=== PATIENT | male | born 1950 | race Caucasian/White ===

== ENCOUNTER → 2019-11-28 | Outpatient (CLI) | payer MEDICARE, OTHER ==
--- NOTE | 2019-11-28 14:40 | Diagnostic Imaging Report ---
EXAMINATION: MRI of the right shoulder without contrast dated 11/28/2019. TECHNIQUE: Multiplanar, multisequence non contrast-enhanced MRI of the right upper extremity was accomplished. INDICATION: Right shoulder pain from heavy lifting approximately one month ago. FINDINGS: There is a focal linear hyperintensity along the anterior supraspinatus tendon at the footprint. This is well seen on the coronal sequences, especially on image #15/20. This is most consistent with a partial deep bursal-sided tear. Definite articular extension is not seen; however, more posteriorly, there is articular-sided irregularity along the infraspinatus tendon, which could represent a partial articular-sided tear, and a serpiginous connection with the anterior supraspinatus tear is not excluded. No retraction seen. There is fluid in the adjacent subdeltoid-subacromial bursa. The subscapularis tendon contains internal abnormal signal intensity predominantly due to tendinosis. A small partial tear is not excluded. There is no retraction. Long head of the biceps tendon lies within the bicipital groove and appears intact. Biceps tendon anchor is intact. There is abnormal signal intensity throughout the superior labrum; however, this could be on a degenerative basis. Noncontrast imaging does limit evaluation of the labrum. There is abnormal signal intensity immediately anterior to the far anterior supraspinatus muscle. This may be reactive in nature secondary to the abnormality in the rotator cuff. The muscle itself appears intact. There is narrowing and spurring as well as fluid along the acromioclavicular joint. Degenerative findings in the inferior glenohumeral joint also noted with subchondral cysts throughout the glenoid. Muscle volume is fairly well preserved. Visualized axilla is unremarkable. IMPRESSION: 1. Deep partial bursal-sided tear of the supraspinatus tendon anteriorly with a possible serpiginous full-thickness tear extending posteriorly to involve the infraspinatus tendon; see above description. 2. Edema immediately anterior to the supraspinatus muscle; again see above description. 3. Tendinosis versus a small partial tear of the subscapularis tendon with other findings as discussed above. Dictated by: Dictated on workstation # [id number]
== END ==
LOC: RAD 13:02
PROVIDERS: ATTEND Family Medicine
DX: M75.111 Incomplete rotator cuff tear or rupture of right shoulder, not specified as traumatic (principal)
CPT/HCPCS: 73221

== ENCOUNTER 2020-02-12 07:22 | Outpatient (RCR) | payer MEDICARE, OTHER ==
[~2020-02-12] VITALS: Ht 182.9 cm; Wt 92.7 kg
[~2020-02-12 07:22] MED LIST: ASPI-586 PO; LISI10TA2 PO; MULT-1056 PO; ROSU20TA32 PO
== END 2020-02-12 15:28 | disposition home or self-care (01) ==
LOC: PREOP 07:22
PROVIDERS: ATTEND Surgery
DX: Z01.818 Encounter for other preprocedural examination (principal); Z11.59 Encounter for screening for other viral diseases
CPT/HCPCS: 87635

== ENCOUNTER → 2020-02-16 | Day surgery (SDC) | payer MEDICARE, OTHER ==
[~2020-02-16] VITALS: Ht 182.9 cm; Wt 92.7 kg
[~2020-02-16] MED LIST changes: +LACTATED RINGERS 1,000 ML IV ONE; +LACTATED RINGERS 1,000 ML IV STA; +MIDAZOLAM 2 MG/2 ML (VERSED) VIAL ONE; +PROPOFOL INJECTION 50 ML IV ONE
--- NOTE | 2020-02-16 09:49 | Progress Note-Pre Operative ---
Pre-Operative Progress Note H&P Reviewed The H&P was reviewed, patient examined and no changes noted. Time Seen by Provider: 09:47 Date H&P Reviewed: February 16, 2020 Time H&P Reviewed: 09:47 Pre-Operative Diagnosis: rectal bleed CHRIS MCRAE DO February 16, 2020 09:49
[2020-02-16 09:55] VITALS: BP 124/93
[2020-02-16 10:40] VITALS: BP 99/56
[2020-02-16 10:45] VITALS: BP 123/84
--- NOTE | 2020-02-16 10:46 | Progress Note-Post Operative ---
Post-Operative Progess Note Surgeon (s)/Tongue And Groove Machine Operator (s) Surgeon CHRIS MCRAE DO Tongue And Groove Machine Operator: none Pre-Operative Diagnosis rectal bleed Post-Operative Diagnosis Diverticula Int Hemorrhoids - grade II Procedure & Operative Findings Date of Procedure 02/16/20 Procedure Performed/Findings Colon Anesthesia Type IV sedation by HOUSEKEEPER CAREGIVER Estimated Blood Loss Estimated blood loss (mL): none Specimens/Packing Specimens Removed none CHRIS MCRAE DO February 16, 2020 10:46
--- NOTE | 2020-02-16 10:47 | Endoscopy Discharge Instruct ---
Endo Procedure/Findings Findings 1.: Diverticulosis 2.: Internal Hemorrhoids Discharge Instructions - Activity: You might feel a little sleepy until tomorrow. This is due to the medicine you received to relax you. Until tomorrow, you should: NOT drive a car, operate machinery or power tools. NOT drink any alcoholic beverages. NOT make any important decisions or sign importortant papers. Do not return to work until tomorrow, unless otherwise instructed. Resume previous activities tomorrow. Diet: Start by taking liquids. If you tolerate liquids, advance to solid food. make an appointment for one week 1.: Colonscopy in 10 years Notify Physician - If you experience excessive bleeding, unusual abdominal pain, fever, or chest pain, contact your doctor immediately. CHRIS MCRAE DO February 16, 2020 10:47
--- OUTSIDE RECORDS SUMMARY | 2020-02-16 10:48 | XMS REPORT | Continuity of Care Document ---
Author Organization Unknown Address Unknown Phone Unavailable Allergies Active Description Code Type Severity Reaction Onset Reported/Identified Relationship to Patient Clinical Status Yes No Known Drug Allergies [id number] Drug Allergy Unknown N/A 02/09/2020 Medications There is no data. Problems Date Dx Coded Attending Type Code Diagnosis Diagnosed By 09/06/1527 CHRIS MCRAE DO, Ot Z01.8 18 ENCOUNTER FOR OTHER PREPROCEDURAL EXAMIN 09/06/1527 CHRIS MCRAE DO Ot Z11.5 9 ENCOUNTER FOR SCREENING FOR OTHER VIRAL 12/03/2019 SELF QUINTIN ALEMAN Ot M75.11 1 INCOMPLETE ROTATR-CUFF TEAR/RUPTR OF R S 12/23/2019 SELF QUINTIN ALEMAN Ot M75.11 1 INCOMPLETE ROTATR-CUFF TEAR/RUPTR OF R S 02/09/2020 SELF QUINTIN ALEMAN Ot M75.11 1 INCOMPLETE ROTATR-CUFF TEAR/RUPTR OF R S Procedures There is no data. Results Test Result Range LIPID PANEL - 02/21/19 08:12 CHOLESTEROL, TOTAL 186 mg/dL <200 HDL CHOLESTEROL 39 mg/dL >40 TRIGLYCERIDES 200 mg/dL <150 LDL-CHOLESTEROL 115 mg/dL (calc) NRG CHOL/HDLC RATIO 4.8 (calc) <5.0 NON HDL CHOLESTEROL 147 mg/dL (calc) <13 0 CMP - 02/21/19 08:12 GLUCOSE 93 mg/dL 65-99 UREA NITROGEN (BUN) 19 mg/dL 7-25 CREATININE 1.15 mg/dL 0.70-1.25 eGFR NON-AFR. THAI 65 mL/min/1.73m2 > OR = 60 eGFR 75 mL/min/1.73m2 > OR = 60 BUN/CREATININE RATIO NOT APPLICABLE (calc) 6-22 SODIUM 139 mmol/L 135-146 POTASSIUM 4.4 mmol/L 3.5-5.3 CHLORIDE 106 mmol/L 98-110 CARBON DIOXIDE 26 mmol/L 20-32 CALCIUM 9.2 mg/dL 8.6-10.3 PROTEIN, TOTAL 6.6 g/dL 6.1-8.1 ALBUMIN 4.3 g/dL 3.6-5.1 GLOBULIN 2.3 g/dL (calc) 1.9-3.7 ALBUMIN/GLOBULIN RATIO 1.9 (calc) 1.0-2. 5 BILIRUBIN, TOTAL 0.5 mg/dL 0.2-1.2 ALKALINE PHOSPHATASE 79 U/L 40-115 AST 22 U/L 10-35 ALT 19 U/L 9-46 CBC w/MANUAL DIFF - 02/21/19 08:12 WHITE BLOOD CELL COUNT 5.0 Thousand/uL 3 .8-10.8 RED BLOOD CELL COUNT 4.77 Million/uL 4.2 0-5.80 HEMOGLOBIN 14.0 g/dL 13.2-17.1 HEMATOCRIT 42.8 % 38.5-50.0 MCV 89.7 fL 80.0-100.0 MCH 29.4 pg 27.0-33.0 MCHC 32.7 g/dL 32.0-36.0 RDW 14.0 % 11.0-15.0 PLATELET COUNT 231 Thousand/uL 140-400 MPV 11.6 fL 7.5-12.5 ABSOLUTE NEUTROPHILS 2650 cells/uL 1500- 7800 ABSOLUTE MONOCYTES 400 cells/uL 200-950 ABSOLUTE EOSINOPHILS 150 cells/uL 15-500 ABSOLUTE BASOPHILS 50 cells/uL 0-200 NEUTROPHILS 53 % NRG LYMPHOCYTES 35 % NRG MONOCYTES 8 % NRG EOSINOPHILS 3 % NRG BASOPHILS 1 % NRG ABSOLUTE LYMPHOCYTES 1750 cells/uL 850-3 900 PLATELET ESTIMATION ADEQUATE ADEQUATE CBC MORPHOLOGY NORMAL Coronavirus SARS-CoV-2 SO 2018 - 0 13:26 Coronavirus Ab [Units/volume] in Serum Negative Negative Encounters ACCT No. Visit Date/Time Discharge Status Pt. Type Provider Facility Loc./Unit Complaint [id number] 09/09/2019 14:30:00 09/09/2019 23:59: 59 CLS Outpatient MARK, QUINTIN Corbett [facility] [id number] 02/21/2019 08:15:00 Document Registration [id number] 02/12/2020 07:22:00 020 15:28:00 DIS Outpatient CHRIS MCRAE DO [facility] PREOP COLONOSCOPY [id number] 11/28/2019 13:02:00 020 23:59:59 CLS Outpatient SELF QUINTIN ALEMAN [facility] RAD ACUTE PAIN OF RT SHOULD ER [id number] 02/16/2020 11:50:00 P EN Preadmit CHRIS MCRAE DO [facility] ENDO RECTAL BLEEDING
[2020-02-16 11:10] VITALS: BP 115/63
--- NOTE | 2020-02-16 14:11 | Anesthesia-General Post-Op ---
MAC Patient Condition Mental Status/LOC: Same as Preop Cardiovascular: Satisfactory Nausea/Vomiting: Absent Respiratory: Satisfactory Pain: Controlled Complications: Absent Post Op Complications Complications None Follow Up Care/Instructions Patient Instructions None needed. Anesthesiology Discharge Order Discharge Order Patient is doing well, no complaints, stable vital signs, no apparent adverse anesthesia problems. No complications reported per nursing. ERWIN HAGEN CRNA February 16, 2020 14:11
--- NOTE | 2020-02-16 22:52 | OPERATIVE REPORT ---
DATE OF SERVICE: 02/16/2020 PREOPERATIVE DIAGNOSIS: Rectal bleed. POSTOPERATIVE DIAGNOSES: Diverticula and large internal hemorrhoids probably grade II. PROCEDURE: Colonoscopy. SURGEON: Michael Guillen DO CREDIT CHECKER: None. ANESTHESIA: IV sedation by POT LINING SUPERVISOR. SPECIMENS: None. BLOOD LOSS: None. FLUIDS: Per anesthesia. POSTOPERATIVE CONDITION: Stable. INDICATION FOR PROCEDURE: The patient is a 69-year-old male who had some rectal bleeding and needed a workup. FINDINGS: The patient had very large internal hemorrhoids. He also had very large diverticula seen throughout the sigmoid and descending colon. PROCEDURE NOTE: After informed consent was obtained, the patient was brought to the endoscopy suite, placed in bed in the left lateral decubitus position. He was administered IV sedation by the POT LINING SUPERVISOR who then monitored his vitals the entire time, heart rate, blood pressure and pulse ox and the scope inserted, pushed all the way into about [address] in, noted a lot of diverticula and large ones. Pictures were taken, able to get all the way to cecum, took a picture of appendiceal orifice, noted the ileocecal valve and then slowly withdrew the scope insufflating to look circumferentially at the daven[place] looking the cecum, up the ascending colon to the hepatic flexure, then down the transverse colon and splenic flexure, into the descending colon and sigmoid colon, again saw multiple large diverticula and then continued down into the rectum, retroflexed in rectal vault, saw some large internal hemorrhoids, probably grade II with either the hemorrhoids or the diverticula that were causing the bleeding, did not see anything else, at this point then removed the scope. The patient tolerated the procedure and recovered in endoscopy suite. Job ID: [id number] DocumentID: [id number] Dictated Date: 02/16/2020 16:13:23 Badger Distiller Operator Date: 02/16/2020 22:51:37 Dictated By: MICHAEL GUILLEN DO
== END ==
LOC: ENDO 09:33
PROVIDERS: ATTEND Surgery
DX: K62.5 Hemorrhage of anus and rectum (principal); K64.1 Second degree hemorrhoids; K57.30 Diverticulosis of large intestine without perforation or abscess without bleeding; I10 Essential (primary) hypertension; E78.5 Hyperlipidemia, unspecified; Z79.899 Other long term (current) drug therapy; Z90.89 Acquired absence of other organs; Z87.891 Personal history of nicotine dependence; Z80.9 Family history of malignant neoplasm, unspecified

== ENCOUNTER → 2022-09-28 | Outpatient (CLI) | payer MEDICARE, OTHER ==
[~2022-09-28] MED LIST changes: -LACTATED RINGERS 1,000 ML IV ONE; -LACTATED RINGERS 1,000 ML IV STA; -LISI10TA2 PO; +LISI10TA25 PO; -MIDAZOLAM 2 MG/2 ML (VERSED) VIAL ONE; -PROPOFOL INJECTION 50 ML IV ONE
--- NOTE | 2022-09-28 15:38 | Diagnostic Imaging Report ---
INDICATION: Neck and radicular pain. No comparison of the cervical spine available. FINDINGS: There are advanced multilevel endplate changes present throughout the cervical spine as well as multilevel facet arthropathy. There are endplate spurs. There is disc space height loss at all cervical levels. The vertebral body heights are maintained within no findings of abnormal prevertebral soft tissue thickening or widening of the predental space. Odontoid view demonstrates normal relationships. The lung apices appear clear. IMPRESSION: Advanced multilevel cervical degenerative disc disease and facet arthropathy with multilevel disc space height loss. The vertebral body heights are maintained and alignment appears normal. There is no abnormal prevertebral soft tissue thickening. Dictated by: Dictated on workstation # [id number]
--- NOTE | 2022-09-28 15:42 | Diagnostic Imaging Report ---
EXAMINATION: Left shoulder radiographs, 2 views. COMPARISON: None. HISTORY: 72-year-old male, left shoulder pain. FINDINGS: There are some limitations of evaluation given the two view technique. The humeral head is not obviously dislocated. The acromioclavicular joint is normally aligned. There are mild acromioclavicular degenerative changes without large undersurface osteophyte. There is no pronounced glenohumeral arthritis. There is no identified acute fracture. IMPRESSION: 1. No identified acute bony abnormality. 2. Mild acromioclavicular degenerative changes without undersurface osteophyte. Dictated by: Dictated on workstation # [id number]
== END ==
LOC: RAD FS 15:00
PROVIDERS: ATTEND Family Medicine
DX: M19.012 Primary osteoarthritis, left shoulder (principal); M25.712 Osteophyte, left shoulder; M50.10 Cervical disc disorder with radiculopathy, unspecified cervical region; M47.22 Other spondylosis with radiculopathy, cervical region
CPT/HCPCS: 72040; 73030

== ENCOUNTER 2023-04-18 21:17 | Emergency (ER) | payer MEDICARE, OTHER ==
[~2023-04-18] VITALS: Ht 182 cm; Wt 95.2 kg
--- NOTE | 2023-04-18 21:22 | ED General ---
General Stated Complaint: WEAKNESS Source of Information: Patient, EMS Exam Limitations: No Limitations History of Present Illness Date Seen by Provider: Apr 18, 2023 Time Seen by Provider: 21:09 Initial Comments 72-year-old male presents to the emergency department today for generalized weakness. He arrives via ambulance and tells me for the last week or so he has felt generally weak. Over the last couple of days he has not really been able to walk due to profound weakness. He did denies any fevers but has had some chills. He has had a "little bit of a "unsettling of my stomach" but denies any nausea or vomiting. No chest pain or shortness of breath. No abdominal pain or changes in bowel or bladder habits. He has had a little bit of cough that has been dry. He has not been vaccinated for COVID. He denies any focal weakness. All other systems reviewed and negative except documented per HPI. Voice recognition software was used to help create this chart Allergies and Home Medications Allergies Coded Allergies: No Known Drug Allergies (Unverified , 02/09/20) Patient Home Medication List Home Medication List Reviewed: Yes Aspirin (Aspir 81) 81 Mg Tablet.dr, 81 MG PO DAILY, (Reported) Entered as Reported by: MILADYS MIGUEL on 02/09/201536 Lisinopril (Lisinopril) 10 Mg Tablet, 10 MG PO DAILY, (Reported) Entered as Reported by: MILADYS MIGUEL on 02/09/201536 Multivit-Min/FA/Lycopen/Lutein (Men 50 Plus Multivitamin Tab) 1 Each Tablet, 1 EACH PO DAILY, (Reported) Entered as Reported by: MILADYS MIGUEL on 02/09/201536 Nirmatrelvir/Ritonavir (Paxlovid 300-100 mg Pack (Eua)) 300 Mg (150 Mg X 2)-100 Mg Tab.ds.pk, 1 EACH PO BID Prescribed by: MALINA JANG MD on 04/18/232201 Rosuvastatin Calcium (Rosuvastatin Calcium) 20 Mg Tablet, 20 MG PO DAILY, (Reported) Entered as Reported by: MILADYS MIGUEL on 02/09/201536 Review of Systems Review of Systems Constitutional: see HPI Past [id number]-[id number] Hx Patient Social History Tobacco Use?: No Use of E-Cig and/or Vaping dev: No Substance use?: No Alcohol Use?: No Seasonal Allergies Seasonal Allergies: Yes Past Medical History Surgeries: Yes Adenoidectomy, Tonsillectomy Respiratory: No Cardiac: Yes High Cholesterol, Hypertension Neurological: No Genitourinary: No Gastrointestinal: Yes (rectal bleeding) Musculoskeletal: Yes Arthritis Endocrine: No HEENT: No Cancer: No Psychosocial: No Integumentary: No Blood Disorders: No Physical Exam Vital Signs Vital Signs - First Documented 04/18/23 21:18 Temp 37.2 Pulse 96 Resp 20 B/P (MAP) 111/67 (82) Pulse Ox 94 O2 Delivery Room Air Capillary Refill : Height, Weight, BMI Height: '" Weight: lbs. oz. kg; 27.71 BMI Method: General Appearance: No Apparent Distress, WD/WN HEENT: Normal ENT Inspection, Pharynx Normal Neck: Full Range of Motion, Normal Inspection, Non Tender, Supple Respiratory: Chest Non Tender, Lungs Clear, Normal Breath Sounds, No Accessory Muscle Use Cardiovascular: Regular Rate, Rhythm, No Murmur, Normal Peripheral Pulses Gastrointestinal: Normal Bowel Sounds, No Organomegaly, Non Tender, Soft Extremity: Normal Capillary Refill, Normal Inspection, Normal Range of Motion, Non Tender, No Calf Tenderness Neurologic/Psychiatric: Alert, Oriented x3, No Motor/Sensory Deficits, Normal Mood/Affect Skin: Normal Color, Warm/Dry Progress/Results/Core Measures Suspected Sepsis SIRS Temperature: Pulse: Respiratory Rate: Laboratory Tests 04/18/23 21:20: White Blood Count 6.6 Blood Pressure / Mean: Laboratory Tests 04/18/23 21:20: Creatinine 1.31H, Platelet Count 149, Total Bilirubin 0.4 Results/Orders Lab Results Laboratory Tests Test 04/18/23 21:20 Range/Units White Blood Count 6.6 4.3-11.0 10^3/uL Red Blood Count 4.76 4.30-5.52 10^6/uL Hemoglobin 14.3 13.3-17.7 g/dL Hematocrit 42 40-54 % Mean Corpuscular Volume 88 80-99 fL Mean Corpuscular Hemoglobin 30 25-34 pg Mean Corpuscular Hemoglobin Concent 34 32-36 g/dL Red Cell Distribution Width 14.2 10.0-14.5 % Platelet Count 149 130-400 10^3/uL Mean Platelet Volume 11.3 9.0-12.2 fL Neutrophils (%) (Auto) 84 H 42-75 % Lymphocytes (%) (Auto) 4 L 12-44 % Monocytes (%) (Auto) 12 0-12 % Eosinophils (%) (Auto) 0 0-10 % Basophils (%) (Auto) 0 0-10 % Neutrophils # (Auto) 5.5 1.8-7.8 X 10^3 Lymphocytes # (Auto) 0.3 L 1.0-4.0 X 10^3 Monocytes # (Auto) 0.8 0.0-1.0 X 10^3 Eosinophils # (Auto) 0.0 0.0-0.3 10^3/uL Basophils # (Auto) 0.0 0.0-0.1 10^3/uL Neutrophils % (Manual) 73 % Lymphocytes % (Manual) 4 % Monocytes % (Manual) 13 % Eosinophils % (Manual) 0 % Basophils % (Manual) 0 % Band Neutrophils 10 % Platelet Estimate NORMAL Blood Morphology Comment NORMAL Sodium Level 137 135-145 MMOL/L Potassium Level 3.8 3.6-5.0 MMOL/L Chloride Level 104 98-107 MMOL/L Carbon Dioxide Level 21 21-32 MMOL/L Anion Gap 12 5-14 MMOL/L Blood Urea Nitrogen 16 7-18 MG/DL Creatinine 1.31 H 0.60-1.30 MG/DL Estimat Glomerular Filtration Rate 57 BUN/Creatinine Ratio 12 Glucose Level 126 H 70-105 MG/DL Calcium Level 8.7 8.5-10.1 MG/DL Corrected Calcium 8.9 8.5-10.1 MG/DL Total Bilirubin 0.4 0.1-1.0 MG/DL Aspartate Amino Transf (AST/SGOT) 20 5-34 U/L Alanine Aminotransferase (ALT/SGPT) 17 0-55 U/L Alkaline Phosphatase 64 40-136 U/L Troponin I < 0.30 <0.30 NG/ML Total Protein 6.2 L 6.4-8.2 GM/DL Albumin 3.8 3.2-4.5 GM/DL SARS-CoV-2 RNA (RT-PCR) Detected H Not Detecte My Orders Orders - MALINA JANG DO Cbc With Automated Diff (04/18/23 21:19) Comprehensive Metabolic Panel (04/18/23 21:19) Covid 19 Inhouse Test (04/18/23 21:19) Chest 1 View Ap/Pa Only (04/18/23 21:19) Troponin I Fs (04/18/23 21:19) Ekg Tracing (04/18/23 21:19) Manual Differential (04/18/23 21:20) Vital Signs/I&O 04/18/23 04/18/23 21:18 22:45 Temp 37.2 Pulse 96 88 Resp 20 20 B/P (MAP) 111/67 (82) 106/60 Pulse Ox 94 92 O2 Delivery Room Air Room Air Capillary Refill : ECG Comment Sinus rhythm at 82 bpm. MN interval is 237, otherwise normal intervals. Left axis deviation. No ST or T wave abnormalities. No ectopy. No STEMI. Departure Communication (Admissions) The patient's COVID test is positive. He has no focal weakness on exam. His electrolytes are unremarkable and his vital signs are normal. He is ambulatory in the emergency department. Okay with discharge home at this time. He is tolerating p.o. without difficulty. He is given strict return precautions. He will be placed on Paxlovid. He is discharged in stable condition peer Impression Primary Impression: COVID-19 Disposition: 01 HOME, SELF-CARE Condition: Stable Departure-Patient Inst. Referrals: SELF,QUINTIN ALEMAN (PCP/Family) Primary Care Physician Patient Instructions: COVID-19 (DC) Add. Discharge Instructions: Take Paxlovid as prescribed. Increase your fluids at home and rest. Should your weakness become so profoundly you are not able to get around I recommend you come back to the hospital. You should also return to the emergency department for any severe shortness of breath. Follow-up with your primary doctor for any nonemergent needs. Scripts Nirmatrelvir/Ritonavir (Paxlovid 300-100 mg Pack (Eua)) 300 Mg (150 Mg X 2)-100 Mg Tab.ds.pk 1 EACH PO BID for 5 Days, #1 PKG Prov: MALINA JANG DO 04/18/23 LAINE,MALINA L DO Apr 18, 2023 21:22
--- NOTE | 2023-04-18 21:36 | Diagnostic Imaging Report ---
INDICATION: Weakness and cough Frontal chest obtained at 9:24 p.m. Heart and mediastinal silhouette are normal in appearance. The lungs are clear. There is no pneumothorax or pleural fluid. IMPRESSION: Negative chest. Dictated by: Dictated on workstation # [id number]
[2023-04-18 21:41] LABS: HEMATOCRIT 42 % (40-54); HEMOGLOBIN 14.3 g/dL (13.3-17.7); MEAN CORPUSCULAR HEMOGLOBIN 30 pg (25-34); MEAN CORPUSCULAR VOLUME 88 fL (80-99); WHITE BLOOD COUNT 6.6 10^3/uL (4.3-11.0)
[2023-04-18 21:42] LABS: BASOPHILS % (AUTO) 0 % (0-10); EOSINOPHILS % (AUTO) 0 % (0-10); LYMPHOCYTES % (AUTO) 4 % (12-44); MEAN CORPUSCULAR HGB CONC 34 g/dL (32-36); MEAN PLATELET VOLUME 11.3 fL (9.0-12.2); MONOCYTES % (AUTO) 12 % (0-12); NEUTROPHILS % (AUTO) 84 % (42-75); PLATELET COUNT 149 10^3/uL (130-400)
[2023-04-18 21:43] LABS: LYMPHOCYTES # (AUTO) 0.3 X 10^3 (1.0-4.0); MONOCYTES # (AUTO) 0.8 X 10^3 (0.0-1.0); NEUTROPHILS # (AUTO) 5.5 X 10^3 (1.8-7.8)
[2023-04-18 21:54] LABS: CHLORIDE 104 MMOL/L (98-107); POTASSIUM 3.8 MMOL/L (3.6-5.0); SODIUM 137 MMOL/L (135-145)
[2023-04-18 21:55] LABS: ALANINE AMINOTRANSFERASE 17 U/L (0-55); ALBUMIN 3.8 GM/DL (3.2-4.5); ALKALINE PHOSPHATASE 64 U/L (40-136); BILIRUBIN,TOTAL 0.4 MG/DL (0.1-1.0); BUN/CREATININE RATIO 12; CALCIUM 8.7 MG/DL (8.5-10.1); CARBON DIOXIDE 21 MMOL/L (21-32); CREATININE SERUM 1.31 MG/DL (0.60-1.30); GFR ESTIMATED 57; GLUCOSE 126 MG/DL (70-105); TOTAL PROTEIN 6.2 GM/DL (6.4-8.2)
[2023-04-18 22:00] LABS: BAND NEUTROPHILS 10 %; BASOPHILS % (MANUAL) 0 %; EOSINOPHILS % (MANUAL) 0 %; LYMPHOCYTES % (MANUAL) 4 %; MONOCYTES % (MANUAL) 13 %; NEUTROPHILS % (MANUAL) 73 %; PLATELET ESTIMATE NORMAL; RBC MORPH NORMAL
[2023-04-18] MEDS ORDERED: NIRM1TAB PO (22:02)
[2023-04-18 22:45] VITALS: BP 106/60
== END 2023-04-18 22:47 | disposition home or self-care (01) ==
LOC: EDUNIT# 21:17 → ER FS 21:18
DX: U07.1 COVID-19 (principal); R53.1 Weakness; R68.83 Chills (without fever); Z28.310 Unvaccinated for COVID-19
CPT/HCPCS: 36415; 71045; 80053; 84484; 85007; 85027; 87636; 93005; 93041